=== PATIENT | female | born 1950 | race Caucasian/White ===

== ENCOUNTER 2017-05-03 02:25 | Emergency (ER) | payer OTHER ==
[~2017-05-03] VITALS: Ht 162.6 cm; Wt 110.0 kg
[2017-05-03 02:27] VITALS: BP 138/73; PULSE 88; RESP 16; TEMP 97.3; O2SAT 94
[2017-05-03 02:28] VITALS: BP 136/76; PULSE 106; RESP 24; TEMP 98.7; O2SAT 90
[2017-05-03 02:57] LABS: AUTOMATED NEUTROPHIL # 5.2 TH/MM3 (1.8-7.7); BASOPHIL # 0.1 TH/MM3 (0-0.2); BASOPHIL % 0.7 % (0.0-2.0); EOSINOPHIL # 0.2 TH/MM3 (0-0.4); EOSINOPHIL % 1.5 % (0.0-4.0); HEMATOCRIT 44.9 % (35.0-46.0); HEMOGLOBIN 14.8 GM/DL (11.6-15.3); LYMPH % 45.9 % (9.0-44.0); LYMPHOCYTE # 5.2 TH/MM3 (1.0-4.8); MEAN CELL VOLUME 86.5 FL (80.0-100.0); MEAN CORPUSCULAR HEMOGLOBIN 28.5 PG (27.0-34.0); MONO % 5.6 % (0.0-8.0); MONOCYTE # 0.6 TH/MM3 (0-0.9); NEUT % 46.3 % (16.0-70.0); PLATELET COUNT 297 TH/MM3 (150-450); RED BLOOD COUNT 5.18 MIL/MM3 (4.00-5.30); RED CELL DISTRIBUTION WIDTH 13.9 % (11.6-17.2); WHITE BLOOD COUNT 11.3 TH/MM3 (4.0-11.0)
[2017-05-03] MEDS ORDERED: RESP: ALBUTEROL 2.5 MG/IPRATROPIUM 0.5 MG NEB (SCH) NEB ONE (03:15)
[2017-05-03 03:30] LABS: BICARBONATE 29.9 MEQ/L (21.0-32.0); BLOOD UREA NITROGEN 19 MG/DL (7-18); CALCIUM 8.5 MG/DL (8.5-10.1); CHLORIDE 107 MEQ/L (98-107); CREATININE 0.86 MG/DL (0.50-1.00); GLOMERULAR FILTRATION RATE 66 ML/MIN (>89); GLUCOSE,RANDOM 112 MG/DL (74-106); SODIUM (NA) 146 MEQ/L (136-145)
--- NOTE | 2017-05-03 03:30 | RADRPT ---
EXAM DATE/TIME: 05/03/2017 02:51 [place] COMPARISON: No previous studies available for comparison. INDICATIONS : Persistant cough and shortness of breath MEDICAL HISTORY : Gout SURGICAL HISTORY : None. ENCOUNTER: Initial ACUITY: 3 days PAIN SCORE: 8/10 LOCATION: Bilateral chest FINDINGS: PA and lateral views of the chest demonstrate the lungs to be symmetrically aerated without evidence of mass, infiltrate or effusion. Cardiac silhouette is in the upper limits of normal. Osseous structu res are intact. CONCLUSION: 1. No acute cardiopulmonary disease. Juan Francisco Bella MD on May 03, 2017 at 3:28 Board Certified Radiologist. This report was verified electronically.
[2017-05-03 03:32] LABS: BANDS 1 % (0-6); BASOPHILS 1 % (0-2); LYMPHOCYTES 41 % (9-44); METAMYELOCYTES 1 % (0-1); MONOCYTES 2 % (0-8); NEUTROPHIL # MANUAL DIFF 6.1 TH/MM3 (1.8-7.7); POLYS (SEG NEUTROPHILS) 52 % (16-70)
[2017-05-03 03:39] LABS: TROPONIN I LESS THAN 0.02 NG/ML (0.02-0.05)
[2017-05-03 04:39] VITALS: BP 117/62; PULSE 84; RESP 24; O2SAT 98
[2017-05-03 04:57] VITALS: PULSE 84; RESP 22; O2SAT 94
[2017-05-03] MEDS ORDERED: AZITHROMYCIN 250 MG TAB PO ONE (05:15)
[2017-05-03] MEDS ORDERED: methylPREDNISolone SOD SUCC 125 MG/2 ML VIAL IV PUSH ONE (05:15)
--- NOTE | 2017-05-03 05:30 | PD ---
HPI Chief Complaint: Respiratory Distress Time Seen by Provider: 02:40 Travel History International Travel<30 days: No Contact w/Intl Traveler<30days: No Traveled to known affect area: No History of Present Illness HPI Patient has a shortness of breath cough wheezing mild respiratory distress speaks [place] Citizen only difficulty communicating get history from her [facility] Past Medical History Heart Rhythm Problems: Yes Gout: Yes Tetanus Vaccination: Unknown Influenza Vaccination: No ?: Not Menopausal: Yes Social History Alcohol Use: Yes (occasionally) Tobacco Use: Yes (1/2 PPD) Substance Use: No Allergies-Medications (Allergen,Severity, Reaction): Coded Allergies: No Known Allergies (Verified , 09/07/13) Reported Meds & Prescriptions Reported Meds & Active Scripts Active Proair Hfa 8.5 GM Inh (Albuterol Sulfate) 90 Mcg/Act Aer 2 Puff INH Q4-6H PRN 108 mcg/actuation Azithromycin 250 Mg Tab 250 Mg PO DIRECTED Take 2 tabs (500 mg) on day 1 then 1 tab daily x 4 days. Prednisone 50 Mg Tab 50 Mg PO DAILY Combivent Respimat Inh (Ipratropium-Albuterol Inh) 20-100 Group Home/Act Aero 1 Puff INH QID Review of Systems ROS Limitations: Language Barrier, Poor Historian Except as stated in HPI: all other systems reviewed are Neg General / Constitutional: Positive: Fever, Chills Respiratory: Positive: Cough, Shortness of Breath, Wheezing Physical Exam Narrative GENERAL: flopping in the bed resp distress appears intermittent SKIN: Warm and dry. HEAD: Atraumatic. Normocephalic. EYES: Pupils equal and round. No scleral icterus. No injection or drainage. ENT: No nasal bleeding or discharge. Mucous membranes pink and moist. NECK: Trachea midline. No JVD. CARDIOVASCULAR: Regular rate and rhythm. RESPIRATORY: No accessory muscle use. diffuse wheeze in upper airway GASTROINTESTINAL: Abdomen soft, non-tender, nondistended. Hepatic and splenic margins not palpable. MUSCULOSKELETAL: Extremities without clubbing, cyanosis, or edema. No obvious deformities. NEUROLOGICAL: Awake and alert. No obvious cranial nerve deficits. Motor grossly within normal limits. Five out of 5 muscle strength in the arms and legs. Normal speech. Data Data Last Documented VS Vital Signs Date Time Temp Pulse Resp B/P (MAP) Pulse Ox O2 Delivery O2 Flow Rate FiO2 05/03/17 06:25 80 16 145/76 (99) 96 05/03/17 04:57 Room Air 05/03/17 04:39 2.00 05/03/17 02:28 98.7 Orders Orders Complete Blood Count With Diff (05/03/17 02:36) Basic Metabolic Panel (Bmp) (05/03/17 02:36) Chest, Pa & Lat (05/03/17 02:36) Iv Access Insert/Monitor (05/03/17 02:36) Ecg Monitoring (05/03/17 02:36) Oxygen Administration (05/03/17 02:36) Oximetry (05/03/17 02:36) Electrocardiogram (05/03/17 02:36) Ckmb (Isoenzyme) Profile (05/03/17 02:36) Troponin I (05/03/17 02:36) Albuterol-Ipratropium Neb (Duoneb Neb) (05/03/17 03:15) Influenzae A/B Antigen (05/03/17 03:04) Group A Rapid Strep Screen (05/03/17 03:04) Strep Culture (Group A) (05/03/17 03:05) CKMB (05/03/17 02:45) CKMB% (05/03/17 02:45) Azithromycin (Zithromax) (05/03/17 05:15) Methylprednisolone So Succ Inj (Solumedr (05/03/17 05:15) Qyqm-Ruwpt-Akkw 325-50-40 Mg (Fioricet 3 (05/03/17 06:30) Acetamin-Hydrocod 325-5 Mg ([place] 5-325 (05/03/17 06:30) Ed Discharge Order (05/03/17 06:26) Labs Laboratory Tests Test 05/03/17 02:45 White Blood Count 11.3 TH/MM3 Red Blood Count 5.18 MIL/MM3 Hemoglobin 14.8 GM/DL Hematocrit 44.9 % Mean Corpuscular Volume 86.5 FL Mean Corpuscular Hemoglobin 28.5 PG Mean Corpuscular Hemoglobin Concent 33.0 % Red Cell Distribution Width 13.9 % Platelet Count 297 TH/MM3 Mean Platelet Volume 8.0 FL Neutrophils (%) (Auto) 46.3 % Lymphocytes (%) (Auto) 45.9 % Monocytes (%) (Auto) 5.6 % Eosinophils (%) (Auto) 1.5 % Basophils (%) (Auto) 0.7 % Neutrophils # (Auto) 5.2 TH/MM3 Lymphocytes # (Auto) 5.2 TH/MM3 Monocytes # (Auto) 0.6 TH/MM3 Eosinophils # (Auto) 0.2 TH/MM3 Basophils # (Auto) 0.1 TH/MM3 CBC Comment AUTO DIFF Differential Total Cells Counted 100 Neutrophils % (Manual) 52 % Band Neutrophils % 1 % Lymphocytes % 41 % Monocytes % 2 % Eosinophils % 2 % Basophils % 1 % Neutrophils # (Manual) 6.1 TH/MM3 Metamyelocytes 1 % Differential Comment FINAL DIFF MANUAL Platelet Estimate NORMAL Platelet Morphology Comment NORMAL Basophilic Stippling FAINT Blood Urea Nitrogen 19 MG/DL Creatinine 0.86 MG/DL Random Glucose 112 MG/DL Calcium Level 8.5 MG/DL Sodium Level 146 MEQ/L Potassium Level 4.2 MEQ/L Chloride Level 107 MEQ/L Carbon Dioxide Level 29.9 MEQ/L Anion Gap 9 MEQ/L Estimat Glomerular Filtration Rate 66 ML/MIN Total Creatine Kinase 186 U/L Creatine Kinase MB 1.9 NG/ML Troponin I LESS THAN 0.02 NG/ML MDM Medical Decision Making Medical Screen Exam Complete: Yes Emergency Medical Condition: Yes Medical Record Reviewed: Yes Differential Diagnosis Differential diagnosis includes upper respiratory infection. Reactive airway disease viral infection COPD exacerbation asthma bronchitis chronic other Narrative Course Pt is given Solu-Medrol 3 duo nebs azithromycin by mouth she sleeps she wakes up she feels much better oxygen sat on room air is 93-95%. Patient wants to go home I will write her for HFA Combivent prednisone azithromycin and have her follow up as an outpatient Diagnosis Primary Impression: Bronchitis Patient Instructions: Acute Bronchitis (ED), General Instructions Scripts Albuterol 8.5 GM Inh (Proair Hfa 8.5 GM Inh) 90 Mcg/Act Aer 2 PUFF INH Q4-6H Y for SHORTNESS OF BREATH, #1 INHALER 0 Refills 108 mcg/actuation Prov: Tato Zepeda MD 05/03/17 Azithromycin (Azithromycin) 250 Mg Tab 250 MG PO DIRECTED for Infection, #6 TAB 0 Refills Take 2 tabs (500 mg) on day 1 then 1 tab daily x 4 days. Prov: Tato Zepeda MD 1/20/18 Prednisone (Prednisone) 50 Mg Tab 50 MG PO DAILY, #6 TAB 0 Refills Prov: Tato Zepeda MD 05/03/17 Ipratropium-Albuterol Inh (Combivent Respimat Inh) 20-100 Group Home/Act Aero 1 PUFF INH QID for Asthma Management, #1 INHALER 0 Refills Prov: Tato Zepeda MD 05/03/17 Disposition: 01 DISCHARGE HOME Condition: Good Tato Zepeda MD May 03, 2017 05:30
[2017-05-03] MEDS ORDERED: IPRAAER INH (06:17)
[2017-05-03] MEDS ORDERED: PRED50 PO (06:18)
[2017-05-03] MEDS ORDERED: AZIT250T3 PO (06:18)
[2017-05-03] MEDS ORDERED: ALBUAER3 INH (06:19)
[2017-05-03 06:25] VITALS: BP 145/76
[2017-05-03] MEDS ORDERED: ACETAMINOPHEN/HYDROcodone 325 MG/5 MG TAB PO ONE (06:30)
[2017-05-03] MEDS ORDERED: ACETAMIN 325 MG/BUTALBITAL 50 MG/CAFFEINE 40 MG TAB PO ONE (06:30)
--- NOTE | 2017-05-03 13:21 | EKG ---
Date Performed: 05/03/2017 Time Performed: 02:36:29 PTAGE: 66 years EKG: Sinus rhythm NONSPECIFIC T-WAVE ABNORMALITY BORDERLINE ECG Compared to PREVIOUS TRACING , nonspecific changes are slightly more prominent. PREVIOUS TRACIN 15.01 DOCTOR: Wolf Guallpa Interpretating Date/Time 05/03/2017 13:20:07
== END 2017-05-03 06:35 | disposition home or self-care (01) ==
LOC: NEPC 02:25
DX: J40 Bronchitis, not specified as acute or chronic (principal); R94.31 Abnormal electrocardiogram [ECG] [EKG]; F17.200 Nicotine dependence, unspecified, uncomplicated
CPT/HCPCS: 71046; 80048; 82550; 82552; 84484; 85007; 85027; 87081; 87804; 87880; 93005; 94664; 96374; 99285; J2930

== ENCOUNTER 2017-07-14 12:32 | Emergency (ER) | payer OTHER ==
[~2017-07-14 12:32] MED LIST: ALBUAER3 INH; AZIT250T3 PO; IPRAAER INH; PRED50 PO
[2017-07-14 12:52] VITALS: BP 157/68; PULSE 91; RESP 18; TEMP 98; O2SAT 95
--- NOTE | 2017-07-14 13:17 | PD ---
Physical Exam Date Seen by Provider: Jul 14, 2017 Time Seen by Provider: 13:10 Narrative 67 year old female presents to the emergency department for evaluation of weakness, chest pain, dizziness, SOB, shakiness that started this afternoon. She states symptoms are resolved now. Patient speaks Maced[place] and requests translation to be done through her significant other. She denies any pain at this time. Moderate severity. Data Data Last Documented VS Vital Signs Date Time Temp Pulse Resp B/P (MAP) Pulse Ox O2 Delivery O2 Flow Rate FiO2 07/14/17 12:52 98.0 91 18 157/68 (97) 95 Orders Orders Ckmb (Isoenzyme) Profile (07/14/17 12:57) Complete Blood Count With Diff (07/14/17 12:57) Comprehensive Metabolic Panel (07/14/17 12:57) Magnesium (Mg) (07/14/17 12:57) Prothrombin Time / Inr (Pt) (07/14/17 12:57) Act Partial Throm Time (Ptt) (07/14/17 12:57) Troponin I (07/14/17 12:57) [facility] Supervised Visit with DARBY: No Narrative Course 67 year old female presents to the emergency department for evaluation of dizziness, chest pain, SOB that are now resolved. Patient is initially seen in triage. Work up is initiated. Patient left AMA before she could be moved to a medical bed. Diagnosis Primary Impression: Left against medical advice Disposition: 07 AGAINST MEDICAL ADVICE Maribel Rodriguez Jul 14, 2017 13:17
== END 2017-07-14 13:24 | disposition left against medical advice (07) ==
LOC: NED 12:32
DX: R06.02 Shortness of breath (principal)
CPT/HCPCS: 99281

== ENCOUNTER 2017-12-17 10:03 | Inpatient (IN) ==
--- NOTE | 2017-12-17 10:41 | XR ---
EXAM DATE: 12/17/2017 10:34 AM EDT AGE/SEX: 67 years / Female INDICATIONS: . Productive cough, short of breath, and chest pain for one week. CLINICAL DATA: This is the patient's initial encounter. Patient reports that signs and symptoms have been present for 1 week and indicates a pain score of 9/10. MEDICAL/SURGICAL HISTORY: Hypertension. None. [place] [facility] [place]. . FINDINGS: There is subtle patchy left basilar infiltrate suspected in the left lower lobe. There are degenerati ve changes of the spine. Cardiomegaly. Right lung is clear. CONCLUSION: Subtle left basilar infiltrate suspected. Electronically signed by: Jos Gayle MD 12/17/2017 10:39 AM EDT
[2017-12-17 11:49] LABS: Baso # (Auto) 0.1 th/mm3 (0.0-0.2); Baso % (Auto) 0.6 % (0.0-2.0); Eos # (Auto) 0.1 th/mm3 (0.0-0.4); Eos % (Auto) 1.4 % (0.0-4.0); Hematocrit 42.1 % (35.0-46.0); Hemoglobin 14.3 gm/dL (11.6-15.3); Lymph # (Auto) 2.1 th/mm3 (1.0-4.8); Lymph % (Auto) 23.5 % (9.0-44.0); Mean Corpuscular HGB Conc 33.9 % (32.0-36.0); Mean Corpuscular Volume 85.7 fL (80.0-100.0); Mean Platelet Volume 8.6 fL (7.0-11.0); Mono # (Auto) 0.8 th/mm3 (0.0-0.9); Mono % (Auto) 9.2 % (0.0-8.0); Neut # (Auto) 5.9 th/mm3 (1.8-7.7); Neut % (Auto) 65.3 % (16.0-70.0); Platelet Count 188 th/mm3 (150-450); Red Blood Count 4.91 mil/mm3 (4.00-5.30); Red Cell Distribution Width 13.2 % (11.6-17.2); White Blood Count 9.1 th/mm3 (4.0-11.0)
[2017-12-17] MEDS ORDERED: Azithromycin Inj 500 MG in Sodium Chlor 0.9% Inj 250 ML IV.SIG ONE (12:09)
--- NOTE | 2017-12-17 12:21 | ED ---
HPI General Chief Complaint: Shortness of Breath/Dyspnea Stated Complaint: Cold / flu symptoms Time Seen by Provider: 12/17/17 12:01 Source: patient Limitations: language barrier (Pt request her translate from Chinese to Citizen Of [place]) History of Present Illness The patient is a 67-year-old Chinese female presenting with complaint of shortness of breath cough chest tightness and pleuritic type of chest pain for about a week. States that it hurts when she breathes out. Reports that going to the beach and breathing in and out of salt water improves her discomfort. Patient is a daily smoker. No fever or chills but states that last time she had a pneumonia she did not have any MD Complaint: shortness of breath and cough Onset (ago): week(s) (1) Severity: moderate Consistency/Duration: constant Relieving factors: cool air Exacerbating factors: lying flat and inspiration Associated symptoms: denies other symptoms, chest pain (pleuritic), cough and wheezing Treatment prior to arrival: none Related Data Home oxygen amount: none Home Medications Medication Instructions Recorded Confirmed gabapentin 300 mg PO BID 12/17/17 12/17/17 gabapentin 400 mg PO BID 12/17/17 12/17/17 Allergies Allergy/AdvReac Type Severity Reaction Status Date / Time No Known Allergies Allergy Unverified 12/17/17 11:57 Review of Systems ROS: all other systems reviewed are negative [facility] Medical History Medical History Neuropathy (Acute) Surgical History Surgical History No history of previous surgery (Acute) Social History Social History Substance History: No History of Abuse Second Hand Smoke Exposure: Yes Smoking Status: Current every day smoker Tobacco Type: Cigarettes How Often Do You Have a Drink Containing Alcohol: Monthly or less Immunization History Tetanus Immunization: Unsure Hx Influenza Vaccine This Season: No Exam Narrative Exam Narrative: GENERAL: Alert and oriented in no distress SKIN: Focused skin assessment warm/dry. HEAD: Atraumatic. Normocephalic. EYES: Pupils equal and round. No scleral icterus. No injection or drainage. ENT: No nasal bleeding or discharge. Mucous membranes pink and moist. NECK: Trachea midline. No JVD. CARDIOVASCULAR: Regular rate and rhythm. No murmur appreciated. RESPIRATORY: No accessory muscle use. And end expiratory wheezing bilaterally on upper lobes. Breath sounds equal bilaterally. GASTROINTESTINAL: Abdomen soft, non-tender, nondistended. Hepatic and splenic margins not palpable. MUSCULOSKELETAL: No obvious deformities. No clubbing. No cyanosis. No edema. NEUROLOGICAL: Awake and alert. No obvious cranial nerve deficits. Motor grossly within normal limits. Normal speech. PSYCHIATRIC: Appropriate mood and affect; insight and judgment normal. Course Hospital Course: Patient with signs on chest x-ray suggestive of mild basilar right lower lobe pneumonia. She is a daily smoker. On evaluation and appears that her O2 sat drops to 88 in room air. We will give her breathing treatment obtain gases. Started on Rocephin and Zithromax. Was given a breathing treatment. Hemodynamically stable afebrile. Initial Documented Vital Signs Temperature 97.7 F 12/17/17 10:06 Pulse Rate 86 12/17/17 10:06 Respiratory Rate 25 H 12/17/17 10:06 Blood Pressure 186/81 H 12/17/17 10:06 Pulse Oximetry 93 L 12/17/17 10:06 Last Documented Vital Signs Temperature 98.5 F 12/18/17 08:15 Pulse Rate 72 12/18/17 10:00 Respiratory Rate 18 12/18/17 08:54 Blood Pressure 134/94 H 12/18/17 08:15 Pulse Oximetry 94 L 12/18/17 08:54 Critical Care Time Critical Care Time: Yes Total Critical Care Time: 30 Attestation: Aggregate critical care time was 30 minutes. Time to perform other separately billable procedures was not included in the critical care time. My time did not include minutes spent treating any other patients simultaneously or on activities that did not directly contribute to the patient's treatment. The services I provided to this patient were to treat and/or prevent clinically significant deterioration that could result in: Respiratory failure cardiopulmonary arrest I provided critical care services requiring my management, as noted below: Chart data review, documentation time, medication orders and management, vital sign assessments/reviewing monitor data, ordering and reviewing lab tests, ordering and interpreting/reviewing x-rays and diagnostic studies, care of the patient and discussion of the patient with the admitting physicians. Medical Decision Making MDM Narrative Medical decision making narrative: Patient with pneumonia and hypoxic hypercapnic respiratory failure secondary to COPD exacerbation possibly infectious process. She does have a left lower lobe pneumonia. She was given breathing treatments and was started on broad-spectrum antibiotics. Hemodynamically stable not appearing septic was admitted. She was placed on BiPAP briefly with marked improvement of her gases. Medical Screen Exam Complete: Yes Emergency Medical Condition: Yes Lab Data Result diagrams: 12/17/17 11:13 12/18/17 06:23 Lab Results 12/17/17 12/17/17 12/17/17 Range/Units 11:13 11:13 11:13 WBC 9.1 (4.0-11.0) th/mm3 RBC 4.91 (4.00-5.30) mil/mm3 Hgb 14.3 (11.6-15.3) gm/dL Hct 42.1 (35.0-46.0) % MCV 85.7 (80.0-100.0) fL MCH 29.0 (27.0-34.0) pg MCHC 33.9 (32.0-36.0) % RDW 13.2 (11.6-17.2) % Plt Count 188 (150-450) th/mm3 MPV 8.6 (7.0-11.0) fL Neut % (Auto) 65.3 (16.0-70.0) % Lymph % (Auto) 23.5 (9.0-44.0) % Villalba % (Auto) 9.2 H (0.0-8.0) % Eos % (Auto) 1.4 (0.0-4.0) % Baso % (Auto) 0.6 (0.0-2.0) % Neut # (Auto) 5.9 (1.8-7.7) th/mm3 Lymph # (Auto) 2.1 (1.0-4.8) th/mm3 Villalba # (Auto) 0.8 (0.0-0.9) th/mm3 Eos # (Auto) 0.1 (0.0-0.4) th/mm3 Baso # (Auto) 0.1 (0.0-0.2) th/mm3 WBC Differential . Differential Comment Auto diff final Puncture Site Patient Temperature O2 Saturation (90-100) % ABG pH (7.380-7.420) ABG pCO2 (38-42) mmHg ABG pO2 (61-120) mmHg ABG HCO3 (22-26) mmol/L ABG O2 Content (12.0-20.0) Vol % ABG Base Excess (-2-2) mmol/L ABG Methemoglobin (0-2) % Jaron Test Hemoglobin (12.0-16.0) G/DL Carboxyhemoglobin (0-4) % O2 Delivery Device Inspired O2 % Critical Value Sodium 142 (136-145) meq/L Potassium 4.2 (3.5-5.1) meq/L Chloride 105 (98-107) meq/L Carbon Dioxide 28.2 (21.0-32.0) meq/L Anion Gap 9 (5-15) meq/L BUN 18 (7-18) mg/dL Creatinine 0.77 (0.50-1.00) mg/dL Estimated GFR 74 L (>89) mL/min Random Glucose 107 H (74-106) mg/dL Lactic Acid 0.7 (0.4-2.0) mmol/L Calcium 9.1 (8.5-10.1) mg/dL Troponin I (0.02-0.05) ng/mL 12/17/17 12/17/17 12/18/17 Range/Units 12:20 16:15 06:23 WBC (4.0-11.0) th/mm3 RBC (4.00-5.30) mil/mm3 Hgb (11.6-15.3) gm/dL Hct (35.0-46.0) % MCV (80.0-100.0) fL MCH (27.0-34.0) pg MCHC (32.0-36.0) % RDW (11.6-17.2) % Plt Count (150-450) th/mm3 MPV (7.0-11.0) fL Neut % (Auto) (16.0-70.0) % Lymph % (Auto) (9.0-44.0) % Villalba % (Auto) (0.0-8.0) % Eos % (Auto) (0.0-4.0) % Baso % (Auto) (0.0-2.0) % Neut # (Auto) (1.8-7.7) th/mm3 Lymph # (Auto) (1.0-4.8) th/mm3 Villalba # (Auto) (0.0-0.9) th/mm3 Eos # (Auto) (0.0-0.4) th/mm3 Baso # (Auto) (0.0-0.2) th/mm3 WBC Differential Differential Comment Puncture Site Right radial Patient Temperature 98.6 O2 Saturation 88 L* (90-100) % ABG pH 7.39 (7.380-7.420) ABG pCO2 47 H (38-42) mmHg ABG pO2 59 L* (61-120) mmHg ABG HCO3 28 H (22-26) mmol/L ABG O2 Content 17.0 (12.0-20.0) Vol % ABG Base Excess 3.7 H (-2-2) mmol/L ABG Methemoglobin 0.9 (0-2) % Jaron Test Present Hemoglobin 13.8 (12.0-16.0) G/DL Carboxyhemoglobin 2.3 (0-4) % O2 Delivery Device Room Inspired O2 21 % Critical Value Yes Sodium 144 (136-145) meq/L Potassium 4.7 (3.5-5.1) meq/L Chloride 104 (98-107) meq/L Carbon Dioxide 33.7 H (21.0-32.0) meq/L Anion Gap 6 (5-15) meq/L BUN 14 (7-18) mg/dL Creatinine 0.69 (0.50-1.00) mg/dL Estimated GFR 84 L (>89) mL/min Random Glucose 159 H (74-106) mg/dL Lactic Acid (0.4-2.0) mmol/L Calcium 9.2 (8.5-10.1) mg/dL Troponin I Less than 0.02 L (0.02-0.05) ng/mL Imaging Data Radiologist's impression: Chest X-Ray 12/17/17 10:12 CONCLUSION: Subtle left basilar infiltrate suspected. Discharge Plan Discharge Disposition Patient Disposition: 30 Still Patient Discharge Condition Condition: Fair Discharge Details Diagnosis: Acute on chronic respiratory failure with hypoxia, CAP (community acquired pneumonia), Acute respiratory failure with hypoxia and hypercapnia Physicians Team ED Provider: Alexei Bolivar Attending Provider: Gamaliel Leahy Other Providers: Torsten Sarmiento ; Radha Garcia Discharge Interventions Interventions: ED Discharge Assessment Last Done: 12/17/17 20:47 Vital Signs Last Done: 12/17/17 18:00 Status ED Status: Left Department Discharge Information Discharge Date/Time: 12/17/17 20:48
[2017-12-17 12:24] LABS: Calcium 9.1 mg/dL (8.5-10.1); Carbon Dioxide 28.2 meq/L (21.0-32.0); Potassium 4.2 meq/L (3.5-5.1)
[2017-12-17 12:28] LABS: ABG Base Excess 3.7 mmol/L (-2-2); ABG PCO2 47 mmHg (38-42); ABG PO2 59 mmHg (61-120)
--- NOTE | 2017-12-17 13:05 | ECG ---
Date Performed: 12/17/2017 Time Performed: 11:07:51 PTAGE: 67 years EKG: Sinus rhythm NONSPECIFIC T-WAVE ABNORMALITY BORDERLINE ECG PREVIOUS TRACING : 05/03/2017 02.36 DOCTOR: Satinder Gavin Interpretating Date/Time 12/17/2017 13:04:19
[2017-12-17] MEDS ORDERED: Acetaminophen 325 MG Tablet PO PRN (14:46)
--- NOTE | 2017-12-17 15:34 | P.HPIM ---
History of Present Illness Primary Care Physician: reyna Navarrete Chief Complaint: Shortness of breath History of Present Illness: This patient is a 67 y/o [place]ian female with a medical history of peripheral neuropathy and an extensive tobacco smoking history. She presented to our emergency department today with complaints of shortness of breath and cough that has been ongoing for approximately one week. He symptoms were getting worse today and her brought her into the ER. She describes a productive cough of whitish colored sputum. She denies any blood in the sputum. She denies any fevers or chills. No recent travel. She stopped smoking tobacco a few days ago because of her symptoms. She denies any nausea or vomiting. No chest pain. - Diagnosis (1) Acute respiratory failure with hypoxia and hypercapnia (2) CAP (community acquired pneumonia) Review of Systems All other systems reviewed negative except as stated in HPI [facility] - History History Provided By: Family Member - Medical History Medical History: Medical History (Last Reviewed 12/17/17 @ 12:25 by Alexei Bolivar DO) Neuropathy - Surgical History Surgical History: Surgical History (Last Reviewed 12/17/17 @ 12:25 by Alexei Bolivar DO) No history of previous surgery - Tobacco History Second Hand Smoke Exposure: Yes Tobacco Use In Past 30 Days: Yes Smoking Status: Current every day smoker Tobacco Type: Cigarettes - Alcohol History How Often Do You Have a Drink Containing Alcohol: Monthly or less - Substance Use History Substance History: No History of Abuse - Immunization History Tetanus Immunization: Unsure Hx Influenza Vaccine This Season: No Medications and Allergies Active Medications: Active Medications Acetaminophen (Tylenol) 650 mg PO Q4H PRN PRN Reason: Temp > 100.4 Al Hydroxide/Mg Hydroxide (Milk Of John Liattila) 30 ml PO Q12H PRN PRN Reason: Mild Constipation Albuterol (Duoneb Neb (Bobby)) 1 ampul NEB Q4HR NEB BOBBY Enoxaparin Sodium (Lovenox Inj) 40 mg SQ Q24H BOBBY Gabapentin (Neurontin) 400 mg PO BID BOBBY Azithromycin 250 mg/ Sodium (Chloride) 250 mls @ 250 mls/hr IV.SIG Q24H BOBBY Ceftriaxone Sodium 1,000 mg/ (Sodium Chloride) 100 mls @ 200 mls/hr IV.SIG Q24H BOBBY Methylprednisolone Sodium Succinate (Solumedrol Inj) 60 mg IV.PUSH Q8HR BOBBY Ondansetron HCl (Zofran Inj) 4 mg IV.PUSH Q6H PRN PRN Reason: NAUSEA OR VOMITING Allergies Allergy/AdvReac Type Severity Reaction Status Date / Time No Known Allergies Allergy Unverified 12/17/17 11:57 Home Medications Medication Instructions Recorded Confirmed Type gabapentin 300 mg PO BID 12/17/17 12/17/17 History gabapentin 400 mg PO BID 12/17/17 12/17/17 History Exam Vital signs: Vital Signs 12/17/17 10:06 12/17/17 11:57 12/17/17 12:26 Temperature 97.7 F Pulse Rate 86 73 71 Respiratory Rate 25 H 22 20 Blood Pressure 186/81 H 160/76 H Pulse Oximetry 93 L 96 12/17/17 12:33 12/17/17 13:35 12/17/17 14:33 Temperature Pulse Rate 66 Respiratory Rate 22 Blood Pressure 155/79 H Pulse Oximetry 94 L 99 100 12/17/17 15:20 Temperature Pulse Rate Respiratory Rate Blood Pressure Pulse Oximetry 100 Intake & Output 12/16/17 12/17/17 12/17/17 18:59 06:59 18:59 Intake Total 350 / 350 Balance 350 / 350 Weight 99.79 kg Intake: IV 350 / 350 Azithromycin Inj 500 MG In NS 250 / 250 Inj 250 ML @ 250 mls/hr IV.SIG ONCE ONE Rx#:[id number] Rocephin Inj 1,000 MG In NS Inj 100 / 100 100 ML @ 200 mls/hr IV.SIG ONCE ONE Rx#:[id number] Narrative: GENERAL: in mild distress SKIN: Warm and dry. HEAD: Atraumatic. Normocephalic. EYES: Pupils equal and round. No scleral icterus. No injection or drainage. ENT: No nasal bleeding or discharge. Mucous membranes pink and moist. NECK: Trachea midline. No JVD. CARDIOVASCULAR: S1S2, RRR RESPIRATORY: wheezing in b/l lung aguilar. GASTROINTESTINAL: Abdomen soft, non-tender, nondistended. MUSCULOSKELETAL: Extremities with 1+ pitting edema of bilateral lower extremities up the the shins. NEUROLOGICAL: Awake and alert. No obvious cranial nerve deficits. Motor grossly within normal limits. Five out of 5 muscle strength in the arms and legs. Results - Labs CBC & Chem 7: 12/17/17 11:13 12/18/17 06:23 Labs: Short CBC 12/17/17 Range/Units 11:13 WBC 9.1 (4.0-11.0) th/mm3 Hgb 14.3 (11.6-15.3) gm/dL Hct 42.1 (35.0-46.0) % Plt Count 188 (150-450) th/mm3 BMP 12/17/17 11:13 Sodium 142 Potassium 4.2 Chloride 105 Carbon Dioxide 28.2 BUN 18 Creatinine 0.77 Calcium 9.1 - Imaging Impressions Chest X-Ray 12/17/17 10:12 CONCLUSION: Subtle left basilar infiltrate suspected. Caprini VTE Risk Assessment Caprini VTE Risk Assessment: Moderate/High Risk (score >= 2) Caprini Risk Assessment Model: Point Value = 1 Point Value = 2 Point Value = 3 Point Value = 5 Age 41-60 Minor surgery BMI > 25 kg/m2 Swollen legs Varicose veins or History of unexplained or recurrent spontaneous Oral contraceptives or hormone replacement Sepsis (< 1 month) Serious lung disease, including pneumonia (< 1 month) Abnormal pulmonary function Acute myocardial infarction Congestive heart failure (< 1 month) History of inflammatory bowel disease Medical patient at bed rest Age 61-74 Arthroscopic surgery Major open surgery (> 45 min) Laparoscopic surgery (> 45 min) Malignancy Confined to bed (> 72 hours) Immobilizing plaster cast Central venous access Age >= 75 History of VTE Family history of VTE Factor V Leiden Prothrombin [id number] Lupus anticoagulant Anticardiolipin antibodies Elevated serum homocysteine Heparin-induced thrombocytopenia Other congenital or acquired thrombophilia Stroke (< 1 month) Elective arthroplasty Hip, pelvis, or leg fracture Acute spinal cord injury (< 1 month) Prophylaxis Regimen: Total Risk Factor Score Risk Level Prophylaxis Regimen 0-1 Low Early ambulation 2 Moderate Order ONE of the following: *Sequential Compression Device (SCD) *Heparin 5000 units SQ BID 3-4 Higher Order ONE of the following medications: *Heparin 5000 units SQ TID *Enoxaparin/Lovenox 40 mg SQ daily (WT < 150 kg, CrCl > 30 mL/min) *Enoxaparin/Lovenox 30 mg SQ daily (WT < 150 kg, CrCl > 10-29 mL/min) *Enoxaparin/Lovenox 30 mg SQ BID (WT < 150 kg, CrCl > 30 mL/min) AND/OR *Sequential Compression Device (SCD) 5 or more Highest Order ONE of the following medications: *Heparin 5000 units SQ TID (Preferred with Epidurals) *Enoxaparin/Lovenox 40 mg SQ daily (WT < 150 kg, CrCl > 30 mL/min) *Enoxaparin/Lovenox 30 mg SQ daily (WT < 150 kg, CrCl > 10-29 mL/min) *Enoxaparin/Lovenox 30 mg SQ BID (WT < 150 kg, CrCl > 30 mL/min) AND *Sequential Compression Device (SCD) Assessment and Plan - Assessment (1) Acute respiratory failure with hypoxia and hypercapnia Code(s): J96.01 - Acute respiratory failure with hypoxia; J96.02 - Acute respiratory failure with hypercapnia Status: Acute (2) CAP (community acquired pneumonia) Code(s): J18.9 - Pneumonia, unspecified organism Status: Acute - Plan This patient is a 67 y/o Female with an extensive past medical history who has been having shortness of breath and a productive cough over the past week. 1. Acute hypoxic hypercapnic respiratory failure 2/2 copd exacerbation. 2. Capna 3. Peripheral neuropathy 4. Tobacco smoking Patient was on bipap initially after evaluation in the ED. Chest xray shows a left lower lobe infiltrate. Sputum cultures ordered. She will be given duoneb treatments q4 hours around the clock for 24 hrs or until symptoms improve. IV solumedrol, and IV antibiotics for capna will also be continued throughout the hospitalization. Continue gabapentin for peripheral neuropathy Patient was counseled on the risks associated with tobacco use.
[2017-12-17] MEDS: MethylPREDNISolone Sod Succinate Inj 125 MG/2 ML Vial IV.PUSH SCH ×2 (17:05→21:32)
[2017-12-17] MEDS: Enoxaparin Inj 40 MG/0.4 ML Syringe SQ SCH (17:05)
--- NOTE | 2017-12-17 21:10 | MB ---
cc: Torsten Sarmiento MD DATE: 12/17/2017 REASON FOR CONSULTATION: Respiratory failure, COPD exacerbation. HISTORY OF PRESENT ILLNESS: The patient is a 67-year-old female from [facility], speaks very little Kyrgyz, who comes to the emergency room complaining of worsening shortness of breath, cough with expectoration of whitish yellowish mucoid sputum. The patient has no fever, no chills, no hemoptysis; however, arterial blood gas revealed both hypoxic and hypercarbic respiratory failure. PCO2 at 69. PAST MEDICAL HISTORY: COPD suggested by her history. PAST SURGICAL HISTORY: No previous surgeries SOCIAL HISTORY: A 65-[id number]-[id number] smoking history, continues to smoke. Does not use drugs, does not drink any alcohol. REVIEW OF SYSTEMS: A 12-point review of systems as per HPI and past history, otherwise negative. MEDICATIONS: 1. Ceftriaxone. 2. Zithromax. 3. Solu-Medrol. 3. Tylenol. 4. Albuterol. 5. Ipratropium nebulizer. 6. Prophylactic Lovenox. PHYSICAL EXAMINATION: GENERAL: The patient is alert. VITAL SIGNS: Temperature 98, pulse 84, respirations 18, blood pressure 150/80. HEENT: Unremarkable. Eyes: No icterus. NECK: Without adenopathy, thyroid enlargement. Central trachea. CHEST: A few scattered rhonchi at bases. CARDIAC: PMI not appreciated. S1, S2 audible. No murmur, no rub. ABDOMEN: Lax. Bowel sounds audible. EXTREMITIES: Trace edema. LABORATORY DATA: White count 9000, hemoglobin 14, hematocrit 42. Sodium 142, potassium 4.2, BUN 18, creatinine 0.7. Chest x-ray, atelectatic change or infiltrate left base. Arterial blood gas, pH 7.39, pCO2 of 47, pO2 59 on room air. IMPRESSION: 1. Hypoxic hypercarbic respiratory failure. 2. Chronic obstructive pulmonary disease. 3. Obesity. 4. Sleep disordered breathing, namely obstructive sleep apnea and/or obesity hypoventilation suspect. PLAN: The patient to continue oxygen therapy, bronchodilator therapy, antibiotic therapy, post-discharge sleep evaluation including polysomnography would be appropriate and long-term BiPAP therapy may be required. Smoke cessation would be appropriate as well. I do thank you for asking me to partake in Ms. Nugent's care. MD PRINCESS Marx/douglas , 06:48 PM , 06:56 PM
[2017-12-17] MEDS: Gabapentin 400 MG Capsule PO SCH (21:32)
[2017-12-18] MEDS: MethylPREDNISolone Sod Succinate Inj 125 MG/2 ML Vial IV.PUSH SCH ×3 (06:10→22:36)
[2017-12-18 07:35] LABS: Calcium 9.2 mg/dL (8.5-10.1); Carbon Dioxide 33.7 meq/L (21.0-32.0); Potassium 4.7 meq/L (3.5-5.1)
[2017-12-18] MEDS: Gabapentin 400 MG Capsule PO SCH ×2 (08:38→20:56)
--- NOTE | 2017-12-18 09:04 | P.PN ---
Subjective Interval history: ALERT LESS COUGH SOB BETTER Physical Exam Vital signs: Vital Signs 12/17/17 10:06 12/17/17 11:57 12/17/17 12:26 Temperature 97.7 F Pulse Rate 86 73 71 Respiratory Rate 25 H 22 20 Blood Pressure 186/81 H 160/76 H Pulse Oximetry 93 L 96 12/17/17 12:33 12/17/17 13:35 12/17/17 14:33 Temperature Pulse Rate 66 Respiratory Rate 22 Blood Pressure 155/79 H Pulse Oximetry 94 L 99 100 12/17/17 15:20 12/17/17 16:41 12/17/17 17:07 Temperature 98.3 F Pulse Rate 66 74 Respiratory Rate 20 18 Blood Pressure 164/76 H Pulse Oximetry 100 95 12/17/17 17:08 12/17/17 18:00 12/17/17 19:15 Temperature Pulse Rate 73 84 Respiratory Rate 20 Blood Pressure Pulse Oximetry 95 93 L 12/17/17 20:00 12/18/17 00:00 12/18/17 00:38 Temperature 98.2 F Pulse Rate 82 87 82 Respiratory Rate 22 22 14 Blood Pressure 134/68 142/69 H Pulse Oximetry 95 96 12/18/17 04:00 12/18/17 04:07 12/18/17 07:40 Temperature 98.6 F Pulse Rate 65 84 73 Respiratory Rate 20 12 Blood Pressure 127/63 Pulse Oximetry 88 L 12/18/17 08:15 12/18/17 08:54 Temperature 98.5 F Pulse Rate 80 70 Respiratory Rate 22 18 Blood Pressure 134/94 H Pulse Oximetry 94 L 94 L Intake & Output 12/17/17 12/18/17 12/18/17 18:59 06:59 18:59 Intake Total 350 / 350 120 / 120 Output Total 1000 / 1000 Balance 350 / 350 -880 / -880 Weight 99.79 kg 99.6 kg Intake: IV 350 / 350 Azithromycin Inj 500 MG In NS 250 / 250 Inj 250 ML @ 250 mls/hr IV.SIG ONCE ONE Rx#:[id number] Rocephin Inj 1,000 MG In NS Inj 100 / 100 100 ML @ 200 mls/hr IV.SIG ONCE ONE Rx#:[id number] Oral 120 / 120 Output: Urine 1000 / 1000 Other: Date of Last Bowel Movement 12/17/17 - Constitutional no acute distress - Routine HEENT Exam Head: Present: normocephalic Eye: Present: EOMI ENT: Present: mucous membranes moist - Routine Neck Exam Present: supple - Routine Cardiovascular Exam Present: RRR, S1, S2 - Routine Abdominal Exam Present: soft, normoactive bowel sounds Results - Labs CBC & Chem 7: 12/17/17 11:13 12/18/17 06:23 Laboratory Results - last 24 hr 12/17/17 12/17/17 12/17/17 11:13 11:13 11:13 WBC 9.1 RBC 4.91 Hgb 14.3 Hct 42.1 MCV 85.7 MCH 29.0 MCHC 33.9 RDW 13.2 Plt Count 188 MPV 8.6 Neut % (Auto) 65.3 Lymph % (Auto) 23.5 Wise % (Auto) 9.2 H Eos % (Auto) 1.4 Baso % (Auto) 0.6 Neut # (Auto) 5.9 Lymph # (Auto) 2.1 Wise # (Auto) 0.8 Eos # (Auto) 0.1 Baso # (Auto) 0.1 WBC Differential . Differential Comment Auto diff final Puncture Site Patient Temperature O2 Saturation ABG pH ABG pCO2 ABG pO2 ABG HCO3 ABG O2 Content ABG Base Excess ABG Methemoglobin Jaron Test Hemoglobin Carboxyhemoglobin O2 Delivery Device Inspired O2 Critical Value Sodium 142 Potassium 4.2 Chloride 105 Carbon Dioxide 28.2 Anion Gap 9 BUN 18 Creatinine 0.77 Estimated GFR 74 L Random Glucose 107 H Lactic Acid 0.7 Calcium 9.1 Troponin I 12/17/17 12/17/17 12/18/17 12:20 16:15 06:23 WBC RBC Hgb Hct MCV MCH MCHC RDW Plt Count MPV Neut % (Auto) Lymph % (Auto) Wise % (Auto) Eos % (Auto) Baso % (Auto) Neut # (Auto) Lymph # (Auto) Wise # (Auto) Eos # (Auto) Baso # (Auto) WBC Differential Differential Comment Puncture Site Right radial Patient Temperature 98.6 O2 Saturation 88 L* ABG pH 7.39 ABG pCO2 47 H ABG pO2 59 L* ABG HCO3 28 H ABG O2 Content 17.0 ABG Base Excess 3.7 H ABG Methemoglobin 0.9 Jaron Test Present Hemoglobin 13.8 Carboxyhemoglobin 2.3 O2 Delivery Device Room Inspired O2 21 Critical Value Yes Sodium 144 Potassium 4.7 Chloride 104 Carbon Dioxide 33.7 H Anion Gap 6 BUN 14 Creatinine 0.69 Estimated GFR 84 L Random Glucose 159 H Lactic Acid Calcium 9.2 Troponin I Less than 0.02 L - Imaging Impressions Chest X-Ray 12/17/17 10:12 CONCLUSION: Subtle left basilar infiltrate suspected. Assessment and Plan - Plan PNA COPD RESPIRATORY FAILURE TOBBACO USE PLAN O2 ANTIBX BRONCHODILATORS STEROIS COUGH SUPPRESSANT INCREASE ACTIVITY
--- NOTE | 2017-12-18 09:25 | P.PN ---
Subjective Interval history: spoke with on the phone- interpreting for us patient feels much better- smoker about a pack per day recently stopped not on home 02 PCP- Dr. Mach[place] [facility] Physical Exam Vital signs: Vital Signs 12/17/17 10:06 12/17/17 11:57 12/17/17 12:26 Temperature 97.7 F Pulse Rate 86 73 71 Respiratory Rate 25 H 22 20 Blood Pressure 186/81 H 160/76 H Pulse Oximetry 93 L 96 12/17/17 12:33 12/17/17 13:35 12/17/17 14:33 Temperature Pulse Rate 66 Respiratory Rate 22 Blood Pressure 155/79 H Pulse Oximetry 94 L 99 100 12/17/17 15:20 12/17/17 16:41 12/17/17 17:07 Temperature 98.3 F Pulse Rate 66 74 Respiratory Rate 20 18 Blood Pressure 164/76 H Pulse Oximetry 100 95 12/17/17 17:08 12/17/17 18:00 12/17/17 19:15 Temperature Pulse Rate 73 84 Respiratory Rate 20 Blood Pressure Pulse Oximetry 95 93 L 12/17/17 20:00 12/18/17 00:00 12/18/17 00:38 Temperature 98.2 F Pulse Rate 82 87 82 Respiratory Rate 22 22 14 Blood Pressure 134/68 142/69 H Pulse Oximetry 95 96 12/18/17 04:00 12/18/17 04:07 12/18/17 07:40 Temperature 98.6 F Pulse Rate 65 84 73 Respiratory Rate 20 12 Blood Pressure 127/63 Pulse Oximetry 88 L 12/18/17 08:15 12/18/17 08:54 Temperature 98.5 F Pulse Rate 80 70 Respiratory Rate 22 18 Blood Pressure 134/94 H Pulse Oximetry 94 L 94 L Intake & Output 12/17/17 12/18/17 12/18/17 18:59 06:59 18:59 Intake Total 350 / 350 120 / 120 Output Total 1000 / 1000 Balance 350 / 350 -880 / -880 Weight 99.79 kg 99.6 kg Intake: IV 350 / 350 Azithromycin Inj 500 MG In NS 250 / 250 Inj 250 ML @ 250 mls/hr IV.SIG ONCE ONE Rx#:[id number] Rocephin Inj 1,000 MG In NS Inj 100 / 100 100 ML @ 200 mls/hr IV.SIG ONCE ONE Rx#:[id number] Oral 120 / 120 Output: Urine 1000 / 1000 Other: Date of Last Bowel Movement 12/17/17 Narrative: awake and alert, speaking in full sentences no acute distress anicteric lungs- no rales, no wheezes, regular rhythm abdomen- flabby soft, nontender extremities no edema neuro exam- non focal Results - Labs CBC & Chem 7: 12/17/17 11:13 12/18/17 06:23 Laboratory Results - last 24 hr 12/17/17 12/17/17 12/17/17 11:13 11:13 11:13 WBC 9.1 RBC 4.91 Hgb 14.3 Hct 42.1 MCV 85.7 MCH 29.0 MCHC 33.9 RDW 13.2 Plt Count 188 MPV 8.6 Neut % (Auto) 65.3 Lymph % (Auto) 23.5 [place] % (Auto) 9.2 H Eos % (Auto) 1.4 Baso % (Auto) 0.6 Neut # (Auto) 5.9 Lymph # (Auto) 2.1 [place] # (Auto) 0.8 Eos # (Auto) 0.1 Baso # (Auto) 0.1 WBC Differential . Differential Comment Auto diff final Puncture Site Patient Temperature O2 Saturation ABG pH ABG pCO2 ABG pO2 ABG HCO3 ABG O2 Content ABG Base Excess ABG Methemoglobin Jaron Test Hemoglobin Carboxyhemoglobin O2 Delivery Device Inspired O2 Critical Value Sodium 142 Potassium 4.2 Chloride 105 Carbon Dioxide 28.2 Anion Gap 9 BUN 18 Creatinine 0.77 Estimated GFR 74 L Random Glucose 107 H Lactic Acid 0.7 Calcium 9.1 Troponin I 12/17/17 12/17/17 12/18/17 12:20 16:15 06:23 WBC RBC Hgb Hct MCV MCH MCHC RDW Plt Count MPV Neut % (Auto) Lymph % (Auto) [place] % (Auto) Eos % (Auto) Baso % (Auto) Neut # (Auto) Lymph # (Auto) [place] # (Auto) Eos # (Auto) Baso # (Auto) WBC Differential Differential Comment Puncture Site Right radial Patient Temperature 98.6 O2 Saturation 88 L* ABG pH 7.39 ABG pCO2 47 H ABG pO2 59 L* ABG HCO3 28 H ABG O2 Content 17.0 ABG Base Excess 3.7 H ABG Methemoglobin 0.9 Jaron Test Present Hemoglobin 13.8 Carboxyhemoglobin 2.3 O2 Delivery Device Room Inspired O2 21 Critical Value Yes Sodium 144 Potassium 4.7 Chloride 104 Carbon Dioxide 33.7 H Anion Gap 6 BUN 14 Creatinine 0.69 Estimated GFR 84 L Random Glucose 159 H Lactic Acid Calcium 9.2 Troponin I Less than 0.02 L - Imaging Impressions Chest X-Ray 12/17/17 10:12 CONCLUSION: Subtle left basilar infiltrate suspected. Assessment and Plan - Assessment (1) Acute on chronic respiratory failure with hypoxia Code(s): J96.21 - Acute and chronic respiratory failure with hypoxia Status: Acute (2) CAP (community acquired pneumonia) Code(s): J18.9 - Pneumonia, unspecified organism Status: Acute - Plan This patient is a 67 y/o Female with an extensive past medical history who has been having shortness of breath and a productive cough over the past week. Acute hypoxic hypercapnic respiratory failure 2/2 copd exacerbation.- clinically improved - off Bi Pap. now on NC - will get a walk test prior to DC- may qualify for home 02 - Dr. Sarmiento ff - nebulization - continue IV steroids - change to po and taper in am - get PFTs - start Spiriva MDI daily Left lower Lobe Pneumonia - cough improving - ff sputum studies Peripheral neuropathy - continue on Gabapentin Hypertension - start Amlodipine 2.5 mg daily =monitor Tobacco smoking- reinforced Oncrease activity (2) CAP (community acquired pneumonia) Qualifiers: Laterality: left Lung location: lower lobe of lung Qualified Code(s): J18.1 - Lobar pneumonia, unspecified organism
[2017-12-18] MEDS ORDERED: Tiotropium Bromide 18 MCG/ACT Inhaler INH SCH (10:00)
[2017-12-18] MEDS: Tiotropium Bromide 18 MCG/ACT Inhaler INH SCH (11:39)
[2017-12-18] MEDS ORDERED: Acetaminophen 325 MG Tablet PO PRN (13:08)
[2017-12-18] MEDS: Chlorpheniramine 8 MG/Hydrocodone 10 MG/5 ML UDC PO SCH (15:06)
[2017-12-18] MEDS: Enoxaparin Inj 40 MG/0.4 ML Syringe SQ SCH (17:06)
[2017-12-18] MEDS: Azithromycin Inj 250 MG in Sodium Chlor 0.9% Inj 250 ML IV.SIG SCH (17:08)
[2017-12-18] MEDS: amLODIPine 5 MG Tablet PO SCH (17:16)
[2017-12-19] MEDS: Chlorpheniramine 8 MG/Hydrocodone 10 MG/5 ML UDC PO SCH ×2 (01:58→13:20)
[2017-12-19] MEDS: MethylPREDNISolone Sod Succinate Inj 125 MG/2 ML Vial IV.PUSH SCH ×3 (06:50→22:30)
[2017-12-19] MEDS: Tiotropium Bromide 18 MCG/ACT Inhaler INH SCH (08:57)
[2017-12-19] MEDS: amLODIPine 5 MG Tablet PO SCH (08:57)
[2017-12-19] MEDS: Gabapentin 400 MG Capsule PO SCH ×2 (08:57→22:30)
--- NOTE | 2017-12-19 09:28 | P.PN ---
Subjective Interval history: up on side of the bed- having breakfast mainly - dry hacking cough Physical Exam Vital signs: Vital Signs 12/18/17 10:00 12/18/17 11:00 12/18/17 12:00 Temperature 98.2 F Pulse Rate 72 101 H 75 Respiratory Rate 20 Blood Pressure 142/73 H Pulse Oximetry 92 L 12/18/17 13:00 12/18/17 14:00 12/18/17 15:00 Temperature Pulse Rate 88 70 90 Respiratory Rate Blood Pressure Pulse Oximetry 12/18/17 16:00 12/18/17 16:47 12/18/17 17:00 Temperature Pulse Rate 74 68 72 Respiratory Rate 18 Blood Pressure Pulse Oximetry 12/18/17 17:01 12/18/17 18:23 12/18/17 19:00 Temperature 98.1 F Pulse Rate 72 73 77 Respiratory Rate 19 Blood Pressure 128/84 Pulse Oximetry 96 12/18/17 20:00 12/18/17 20:43 12/18/17 21:00 Temperature 98.4 F Pulse Rate 70 80 79 Respiratory Rate 22 18 Blood Pressure 130/67 Pulse Oximetry 96 12/18/17 22:00 12/18/17 23:00 12/18/17 23:46 Temperature Pulse Rate 65 74 90 Respiratory Rate 18 Blood Pressure Pulse Oximetry 96 12/19/17 00:00 12/19/17 01:00 12/19/17 02:00 Temperature 98.5 F Pulse Rate 82 68 66 Respiratory Rate 22 Blood Pressure 139/74 Pulse Oximetry 97 12/19/17 03:00 12/19/17 03:55 12/19/17 04:00 Temperature 98.2 F Pulse Rate 68 62 82 Respiratory Rate 17 22 Blood Pressure 128/56 L Pulse Oximetry 12/19/17 07:00 12/19/17 08:41 Temperature Pulse Rate 51 L 88 Respiratory Rate Blood Pressure Pulse Oximetry 100 Intake & Output 12/18/17 12/19/17 12/19/17 18:59 06:59 18:59 Intake Total 830 / 830 700 / 700 Output Total 550 / 550 800 / 800 Balance 280 / 280 -100 / -100 Weight 100 kg Intake: IV 350 / 350 Azithromycin Inj 250 MG In NS 250 / 250 Inj 250 ML @ 250 mls/hr IV.SIG Q24H [facility] Rx#:[id number] Rocephin Inj 1,000 MG In NS Inj 100 / 100 100 ML @ 200 mls/hr IV.SIG Q24H [facility] Rx#:[id number] Oral 480 / 480 700 / 700 Output: Urine 550 / 550 800 / 800 Other: Date of Last Bowel Movement 12/17/17 Narrative: awake and alert, speaking in full sentences no acute distress anicteric lungs- no rales, no wheezes regular rhythm abdomen- flabby soft, nontender extremities no edema neuro exam- non focal Results - Labs CBC & Chem 7: 12/17/17 11:13 12/18/17 06:23 Microbiology 12/18/17 16:55 Sputum - Expectorated Sputum Gram Stain - Final 12/17/17 12:06 Blood - Peripheral Aerobic Blood Culture - Preliminary No growth in 1 day 12/17/17 12:06 Blood - Peripheral Anaerobic Blood Culture - Preliminary No growth in 1 day 12/17/17 11:13 Blood - Peripheral Aerobic Blood Culture - Preliminary No growth in 1 day 12/17/17 11:13 Blood - Peripheral Anaerobic Blood Culture - Preliminary No growth in 1 day Assessment and Plan - Assessment (1) Acute on chronic respiratory failure with hypoxia Code(s): J96.21 - Acute and chronic respiratory failure with hypoxia Status: Acute (2) CAP (community acquired pneumonia) Code(s): J18.9 - Pneumonia, unspecified organism Status: Acute - Plan This patient is a 67 y/o Female with an extensive past medical history who has been having shortness of breath and a productive cough over the past week. Acute hypoxic hypercapnic respiratory failure 2/2 copd exacerbation.- clinically improved - off Bi Pap. now on NC - will get a walk test prior to DC- may qualify for home 02 - Dr. Sarmiento ff - nebulization - continue IV steroids = decfease to q 12 -PFTs- shows moderate obstructive disease - start Spiriva MDI daily 12/17 - start Albuterol MDIs - cotninue tussinex. add Tessalon pearles Left lower Lobe Pneumonia - cough - dry - cough suppressants - ff sputum studies Peripheral neuropathy - continue on Gabapentin Hypertension - start Amlodipine 2.5 mg daily =monitor Tobacco smoking- reinforced Increase activity Lovenox CM consult for home 02 arrangement-s -will ebonie qualify- pending walkt est (2) CAP (community acquired pneumonia) Qualifiers: Laterality: left Lung location: lower lobe of lung Qualified Code(s): J18.1 - Lobar pneumonia, unspecified organism
[2017-12-19] MEDS: Benzonatate 100 MG Capsule PO SCH ×2 (10:17→17:28)
[2017-12-19] MEDS: Azithromycin Inj 250 MG in Sodium Chlor 0.9% Inj 250 ML IV.SIG SCH (15:31)
[2017-12-19] MEDS: Enoxaparin Inj 40 MG/0.4 ML Syringe SQ SCH (16:18)
[2017-12-19] MEDS ORDERED: predniSONE 20 MG Tablet PO SCH (21:00)
[2017-12-20] MEDS: Benzonatate 100 MG Capsule PO SCH ×3 (02:30→18:15)
[2017-12-20] MEDS: Chlorpheniramine 8 MG/Hydrocodone 10 MG/5 ML UDC PO SCH ×2 (02:30→13:39)
[2017-12-20] MEDS: amLODIPine 5 MG Tablet PO SCH (11:33)
[2017-12-20] MEDS: Gabapentin 400 MG Capsule PO SCH ×2 (11:33→21:23)
[2017-12-20] MEDS: MethylPREDNISolone Sod Succinate Inj 125 MG/2 ML Vial IV.PUSH SCH ×2 (11:34→21:25)
[2017-12-20] MEDS: Tiotropium Bromide 18 MCG/ACT Inhaler INH SCH (11:34)
--- NOTE | 2017-12-20 14:15 | P.PNIM ---
Subjective Interval history: Patient complains of shortness of breath. Physical Exam Vital signs: Vital Signs 12/19/17 14:00 12/19/17 14:29 12/19/17 16:00 Temperature 98.1 F Pulse Rate 58 L 57 L 69 Respiratory Rate 18 Blood Pressure 148/84 H Pulse Oximetry 96 12/19/17 16:40 12/19/17 17:35 12/19/17 20:00 Temperature 97.7 F Pulse Rate 80 63 62 Respiratory Rate 18 Blood Pressure 146/67 H Pulse Oximetry 99 12/19/17 20:15 12/19/17 23:52 12/20/17 00:27 Temperature 97.6 F Pulse Rate 54 L Respiratory Rate 18 Blood Pressure 124/61 Pulse Oximetry 96 99 99 12/20/17 04:00 12/20/17 08:00 Temperature 97.6 F 97.7 F Pulse Rate 50 L 54 L Respiratory Rate 20 Blood Pressure 120/56 L 143/67 H Pulse Oximetry 99 99 Intake & Output 12/19/17 12/20/17 12/20/17 18:59 06:59 18:59 Intake Total 2850 / 2850 Balance 2850 / 2850 Weight 103.7 kg Intake: IV 350 / 350 Azithromycin Inj 250 MG In NS 250 / 250 Inj 250 ML @ 250 mls/hr IV.SIG Q24H [facility] Rx#:[id number] Rocephin Inj 1,000 MG In NS Inj 100 / 100 100 ML @ 200 mls/hr IV.SIG Q24H [facility] Rx#:[id number] Oral 2500 / 2500 Other: # Voids 4 1 Narrative: HEENT extraocular movements are intact, clear oropharyngeal mucosa, no JVD Cardiovascular S1-S2 audible, RRR, no murmurs rubs or gallops Respiratory wheezing bilaterally Abdomen obese, soft, nontender, nondistended, normal bowel sounds Extremities no edema 2+ distal pulses in bilateral upper and lower extremities, no clubbing Neuro no neurological deficits Results - Labs CBC & Chem 7: 12/17/17 11:13 12/18/17 06:23 Microbiology 12/18/17 16:55 Sputum - Expectorated Sputum Gram Stain - Final 12/18/17 16:55 Sputum - Expectorated Sputum Sputum Culture - Final Heavy growth normal respiratory denton 12/17/17 12:06 Blood - Peripheral Aerobic Blood Culture - Preliminary No growth in 3 days 12/17/17 12:06 Blood - Peripheral Anaerobic Blood Culture - Preliminary No growth in 3 days 12/17/17 11:13 Blood - Peripheral Aerobic Blood Culture - Preliminary No growth in 3 days 12/17/17 11:13 Blood - Peripheral Anaerobic Blood Culture - Preliminary No growth in 3 days Assessment and Plan - Assessment (1) Acute on chronic respiratory failure with hypoxia Code(s): J96.21 - Acute and chronic respiratory failure with hypoxia Status: Acute (2) CAP (community acquired pneumonia) Code(s): J18.9 - Pneumonia, unspecified organism Status: Acute - Plan This patient is a 67 y/o Female with an extensive past medical history who has been having shortness of breath and a productive cough over the past week. 1. Acute hypoxic hypercapnic respiratory failure 2/2 copd exacerbation. 2. Capna 3. Peripheral neuropathy 4. Tobacco smoking The patient is still having shortness of breath and wheezing. Current O2 saturations are above 95% we will begin to titrate the patient's oxygenation requirement. Continue DuoNeb treatments, continue p.o. steroids. Continue antibiotics for pneumonia. She was advised to quit smoking. If we are unsuccessful titrating the patient off of oxygen she will require supplemental oxygen at home. Continue gabapentin for peripheral neuropathy. Lovenox for DVT prophylaxis (2) CAP (community acquired pneumonia) Qualifiers: Laterality: left Lung location: lower lobe of lung Qualified Code(s): J18.1 - Lobar pneumonia, unspecified organism
--- NOTE | 2017-12-20 15:41 | P.PNPL ---
Subjective Interval history: 67 YO [place] Female with COPD exac, ?MELISSA Has wheezing Cough, mostly dry No Fever Physical Exam Vital signs: Vital Signs 12/19/17 16:00 12/19/17 16:40 12/19/17 17:35 Temperature 98.1 F Pulse Rate 69 80 63 Respiratory Rate 18 Blood Pressure 148/84 H Pulse Oximetry 96 12/19/17 20:00 12/19/17 20:15 12/19/17 23:52 Temperature 97.7 F 97.6 F Pulse Rate 62 54 L Respiratory Rate 18 18 Blood Pressure 146/67 H 124/61 Pulse Oximetry 99 96 99 12/20/17 00:27 12/20/17 04:00 12/20/17 08:00 Temperature 97.6 F 97.7 F Pulse Rate 50 L 54 L Respiratory Rate 20 Blood Pressure 120/56 L 143/67 H Pulse Oximetry 99 99 99 Intake & Output 12/19/17 12/20/17 12/20/17 18:59 06:59 18:59 Intake Total 2850 / 2850 Balance 2850 / 2850 Weight 103.7 kg Intake: IV 350 / 350 Azithromycin Inj 250 MG In NS 250 / 250 Inj 250 ML @ 250 mls/hr IV.SIG Q24H [facility] Rx#:[id number] Rocephin Inj 1,000 MG In NS Inj 100 / 100 100 ML @ 200 mls/hr IV.SIG Q24H [facility] Rx#:[id number] Oral 2500 / 2500 Other: # Voids 4 1 GENERAL: Obese Female, mild discomfort due to cough SKIN: Warm and dry. HEAD: Normocephalic. EYES: No scleral icterus. No injection or drainage. NECK: Supple, trachea midline. No JVD or lymphadenopathy. CARDIOVASCULAR: Regular rate and rhythm without murmurs, gallops, or rubs. RESPIRATORY: Breath sounds equal bilaterally. No accessory muscle use. GASTROINTESTINAL: Abdomen soft, non-tender, nondistended. MUSCULOSKELETAL: No cyanosis, or edema. BACK: Nontender without obvious deformity. No CVA tenderness. Assessment and Plan - Plan IMPRESSION: COPD Exac Nicotine use HTN Obesity ? MELISSA PLAN: IV Solumedrol Supplement 02 Aerosol nebs Tussionex bid SQ Lovenox.
[2017-12-20] MEDS: Azithromycin Inj 250 MG in Sodium Chlor 0.9% Inj 250 ML IV.SIG SCH (16:59)
[2017-12-20] MEDS: Enoxaparin Inj 40 MG/0.4 ML Syringe SQ SCH (18:15)
[2017-12-21] MEDS: Benzonatate 100 MG Capsule PO SCH ×2 (01:59→11:15)
[2017-12-21] MEDS: Chlorpheniramine 8 MG/Hydrocodone 10 MG/5 ML UDC PO SCH ×2 (01:59→13:33)
[2017-12-21] MEDS: amLODIPine 5 MG Tablet PO SCH (09:29)
[2017-12-21] MEDS: Gabapentin 400 MG Capsule PO SCH (09:29)
[2017-12-21] MEDS: MethylPREDNISolone Sod Succinate Inj 125 MG/2 ML Vial IV.PUSH SCH ×2 (09:29→11:15)
[2017-12-21] MEDS: Tiotropium Bromide 18 MCG/ACT Inhaler INH SCH (09:30)
[2017-12-21] MEDS ORDERED: predniSONE 20 MG Tablet PO ONE (13:00)
--- NOTE | 2017-12-21 13:38 | P.DS ---
Date of admission: 12/19/17 12:25 Primary care physician: reyna Navarrete Brief History from admission: This patient is a 67 y/o [place] female with a medical history of peripheral neuropathy and an extensive tobacco smoking history. She presented to our emergency department today with complaints of shortness of breath and cough that has been ongoing for approximately one week. He symptoms were getting worse today and her brought her into the ER. She describes a productive cough of whitish colored sputum. She denies any blood in the sputum. She denies any fevers or chills. No recent travel. She stopped smoking tobacco a few days ago because of her symptoms. She denies any nausea or vomiting. No chest pain. Patient update on day of discharge: Patient feeling better today. She does not have any complaints. DS: Diagnosis - Discharge Diagnosis (1) Acute on chronic respiratory failure with hypoxia Status: Acute (2) CAP (community acquired pneumonia) Status: Acute (3) Respiratory failure with hypoxia and hypercapnia Status: Acute DS: Medications - Discharge Medications Prescriptions: albuterol sulfate [Proventil HFA] 2 puff INHALATION Q4H PRN #1 inh PRN Reason: Dyspnea azithromycin 250 mg PO DAILY #3 tab budesonide-formoterol [Symbicort] 2 puff INHALATION Q12H #1 inh prednisone 10 mg PO DAILY #10 tab DS: Summary Hospital Course: This patient is a 67-year-old [place]an speaking female with an extensive tobacco smoking history. As per the patient she has smoked approximately 1 pack per day for 60 years. She presented to our emergency department glint of shortness of breath and dyspnea that was progressively getting worse. She is an active smoker. An ABG in the emergency department showed hypoxia and hypercapnia. She was placed on BiPAP and started on treatment for COPD exacerbation. Chest x- ray was done which showed a left basilar infiltrate. Internal medicine team was then called to admit the patient. She was continued on steroids DuoNeb treatments and supplemental oxygen while in-house. Pulmonology was consulted to evaluate the patient. PFTs were done which showed findings consistent with COPD. She has been counseled extensively to stop smoking tobacco, the patient agrees to stop smoking. She was titrated off of supplemental oxygen and transitioned to p.o. steroids. A 6 minute walk test was done by ms and a pulse oximetry after walking showed an O2 saturation of 93%. She currently does not have any complaints of shortness of breath and says that she feels well. She will be discharged home today. A prescription for 3 days of azithromycin, albuterol, Symbicort, and a tapering dose of steroids has been printed. She should have an outpatient sleep study as per pulmonology recommendations. She has been on DVT prophylaxis throughout the hospitalization. - Time Spent with Patient Total time spent providing and/or coordinating discharge services: Greater than 30 minutes Exam Vital signs: Vital Signs 12/20/17 15:47 12/20/17 16:00 12/20/17 20:00 Temperature 97.6 F Pulse Rate 57 L Respiratory Rate 20 Blood Pressure 114/63 Pulse Oximetry 99 94 L 94 L 12/20/17 21:15 12/21/17 00:00 12/21/17 04:00 Temperature 98 F 97.8 F Pulse Rate 60 66 Respiratory Rate 17 19 18 Blood Pressure 130/66 122/68 Pulse Oximetry 96 97 12/21/17 04:45 12/21/17 12:00 Temperature 97.6 F 97.4 F L Pulse Rate 59 L 59 L Respiratory Rate 16 14 Blood Pressure 118/58 L 145/68 H Pulse Oximetry 99 92 L Intake & Output 12/20/17 12/21/17 12/21/17 18:59 06:59 18:59 Intake Total 1190 / 1190 1600 / 1600 Balance 1190 / 1190 1600 / 1600 Weight 103.7 kg Intake: IV 350 / 350 Azithromycin Inj 250 MG In NS 250 / 250 Inj 250 ML @ 250 mls/hr IV.SIG Q24H [facility] Rx#:[id number] Rocephin Inj 1,000 MG In NS Inj 100 / 100 100 ML @ 200 mls/hr IV.SIG Q24H [facility] Rx#:[id number] Oral 840 / 840 1600 / 1600 Other: # Voids 3 4 1 # Bowel Movements 1 0 Results Procedures completed during hospitalization: None Labs on day of discharge: Preliminary micro results at discharge 12/17/17 12:06 Aerobic Blood Culture - Preliminary Blood - Peripheral No growth in 4 days Anaerobic Blood Culture - Preliminary No growth in 4 days 12/17/17 11:13 Aerobic Blood Culture - Preliminary Blood - Peripheral No growth in 4 days Anaerobic Blood Culture - Preliminary No growth in 4 days - Impressions ITS Impressions Chest X-Ray 12/17/17 10:12 CONCLUSION: Subtle left basilar infiltrate suspected. Discharge Plan - Discharge Disposition Patient Disposition: 01 Discharge Home - Discharge Condition Condition: Fair - Discharge Order Discharge Orders: Discharge Order (Routine); Ordered 12/21/17 Ordered By: Delisa Roldan - Physicians Team Attending Provider: Alonzo Wong Other Providers: Torsten Sarmiento MD ; Radha Garcia
--- NOTE | 2017-12-21 14:45 | P.PNPL ---
Subjective Interval history: 67 YO Guyanese Female with COPD exac, ?MELISSA Cough, mostly dry No Fever Wheezing improved on RA at BS Physical Exam Vital signs: Vital Signs 12/20/17 15:47 12/20/17 16:00 12/20/17 20:00 Temperature 97.6 F Pulse Rate 57 L Respiratory Rate 20 Blood Pressure 114/63 Pulse Oximetry 99 94 L 94 L 12/20/17 21:15 12/21/17 00:00 12/21/17 04:00 Temperature 98 F 97.8 F Pulse Rate 60 66 Respiratory Rate 17 19 18 Blood Pressure 130/66 122/68 Pulse Oximetry 96 97 12/21/17 04:45 12/21/17 12:00 12/21/17 13:35 Temperature 97.6 F 97.4 F L Pulse Rate 59 L 59 L Respiratory Rate 16 14 Blood Pressure 118/58 L 145/68 H Pulse Oximetry 99 92 L 93 L Intake & Output 12/20/17 12/21/17 12/21/17 18:59 06:59 18:59 Intake Total 1190 / 1190 1600 / 1600 Balance 1190 / 1190 1600 / 1600 Weight 103.7 kg Intake: IV 350 / 350 Azithromycin Inj 250 MG In NS 250 / 250 Inj 250 ML @ 250 mls/hr IV.SIG Q24H [facility] Rx#:[id number] Rocephin Inj 1,000 MG In NS Inj 100 / 100 100 ML @ 200 mls/hr IV.SIG Q24H [facility] Rx#:[id number] Oral 840 / 840 1600 / 1600 Other: # Voids 3 4 1 # Bowel Movements 1 0 GENERAL: WBWN NAD SKIN: Warm and dry. HEAD: Normocephalic. EYES: No scleral icterus. No injection or drainage. NECK: Supple, trachea midline. No JVD or lymphadenopathy. CARDIOVASCULAR: Regular rate and rhythm without murmurs, gallops, or rubs. RESPIRATORY: Breath sounds equal bilaterally. No accessory muscle use. GASTROINTESTINAL: Abdomen soft, non-tender, nondistended. MUSCULOSKELETAL: No cyanosis, or edema. BACK: Nontender without obvious deformity. No CVA tenderness. Assessment and Plan - Plan IMPRESSION: COPD Exac Nicotine use HTN Obesity ? MELISSA PLAN: DC Solumedrol PO Steroids Aerosol nebs Tussionex bid SQ Lovenox. Stable on RA DC plans for home
== END 2017-12-21 15:31 | disposition home health service (06) ==
LOC: NEPC 10:03 → INTOOBSV 13:56 → NEDA 13:56 → HCIS 20:18 → N05 12-19 17:10 → HCIS 12-19 17:19 → N05 12-19 18:34
PROVIDERS: ADMIT Family Medicine; ATTEND Family Medicine